=== PATIENT | female | born 1980 | race Caucasian/White ===

== ENCOUNTER → 2018-06-08 | Outpatient (CLI) | payer BC | LOC: LAB SHORT 09:30 → LAB 09:30 | PROVIDERS: Nurse Practitioner Family | DX: Z01.419 Encounter for gynecological examination (general) (routine) without abnormal findings (principal) | CPT/HCPCS: G0145 ==

== ENCOUNTER → 2019-06-14 | Outpatient (CLI) | payer BC ==
[~2019-06-14] MED LIST: CHOL10002 PO; TECFIDERA240 MG PO
[2019-06-17 15:07] LABS: HPV 16 Negative (Negative); HPV 18 Negative (Negative); HPV OTHER HR TYPES Negative (Negative)
== END | disposition home or self-care (01) ==
LOC: LAB SHORT 16:45 → LAB 16:45
PROVIDERS: Registered Nurse
DX: Z01.419 Encounter for gynecological examination (general) (routine) without abnormal findings (principal)
CPT/HCPCS: 87624; G0145

== ENCOUNTER → 2020-03-12 | Outpatient (CLI) | payer BC ==
[2020-03-13 14:08] LABS: Stool Occult Bld Immuno 1 Negative (NEGATIVE)
== END | disposition home or self-care (01) ==
LOC: LAB 07:45 → LAB SHORT 07:45 → LAB FUT 03-09 07:35
PROVIDERS: Nurse Practitioner Family
DX: K62.5 Hemorrhage of anus and rectum (principal)
CPT/HCPCS: 82274

== ENCOUNTER → 2022-09-01 | Outpatient (CLI) | payer BC ==
[2022-09-05 14:09] LABS: HPV 16 Negative (Negative); HPV 18 Negative (Negative); HPV OTHER HR TYPES Negative (Negative)
== END | disposition home or self-care (01) ==
LOC: LAB SHORT 11:49 → LAB 11:49
PROVIDERS: Family Medicine
DX: Z01.419 Encounter for gynecological examination (general) (routine) without abnormal findings (principal)
CPT/HCPCS: 87624; G0123

== ENCOUNTER → 2022-09-01 | Outpatient (CLI) | payer BC | END | disposition home or self-care (01) | LOC: LAB 13:44 → LAB SHORT 13:44 | DX: N84.1 Polyp of cervix uteri (principal) | CPT/HCPCS: 88305 ==

== ENCOUNTER → 2023-01-10 | Outpatient (CLI) | payer BC | END | disposition home or self-care (01) | LOC: LAB SHORT 11:49 → LAB 11:49 | DX: R30.0 Dysuria (principal) | CPT/HCPCS: 87086 ==

== ENCOUNTER → 2023-08-10 | Outpatient (CLI) | payer BC | LOC: LAB SHORT 15:10 → LAB 15:10 | DX: N39.0 Urinary tract infection, site not specified (principal) | CPT/HCPCS: 87086 ==

== ENCOUNTER 2023-11-27 03:16 | Day surgery (SDC) | payer BC, OTHER ==
[2023-11-27 08:18] VITALS: BP 107/78
[2023-11-27] MEDS ORDERED: K2 LIQUID90 MCG/0.5 PO (12:21)
[2023-11-27] MEDS ORDERED: FISH OIL 1,0001 EA10 PO (12:21)
[2023-11-27] MEDS ORDERED: TYSABRI IV (12:22)
[2023-11-27] MEDS ORDERED: TUMERIC PO (12:22)
[2023-11-27] MEDS ORDERED: MAGCIT300 PO (12:23)
[2023-11-27] MEDS ORDERED: CLARITIN-D 121 EAC1 PO (12:23)
[2023-11-27] MEDS ORDERED: MELATONIN5 M1 PO (12:24)
[2023-11-27] MEDS ORDERED: DHEA PO (12:24)
[2023-11-27] MEDS ORDERED: Adipex-P37.5 M1 PO (12:24)
--- NOTE | 2023-11-27 12:25 | NUR ---
PT HAS HAD TYSABRI FOR SEVERAL YEARS. THIS IS THE FIRST TIME GETTING THIS MEDICATION AT THE [facility] AT [facility]. PT STATES SHE DOESN'T NORMALLY STAY THE 1 HOUR AFTER INFUSION IS COMPLETE. CALLED DR. OSCAR'S OFFICE AND SPOKE WITH FRANCY ZAVALA, WHO GAVE ORDERS THAT PT IS NOT REQUIRED TO [place]MEAIN FOR THE 1 HOUR TIME PERIOD AFTER HER INFUSION. SHE MAY BE DISCHARGE HOME AFTER EACH INFUSION IS COMPLETE.
== END 2023-11-27 10:07 | disposition home or self-care (01) ==
LOC: ATC 03:16
DX: G35 Multiple sclerosis (principal); G43.909 Migraine, unspecified, not intractable, without status migrainosus
CPT/HCPCS: 96365; J2323

== ENCOUNTER 2023-12-25 01:41 | Day surgery (SDC) | payer BC, OTHER ==
[~2023-12-25 01:41] MED LIST changes: +Adipex-P37.5 M1 PO; +CLARITIN-D 121 EAC1 PO; +DHEA PO; +FISH OIL 1,0001 EA10 PO; +K2 LIQUID90 MCG/0.5 PO; +MAGCIT300 PO; +MELATONIN5 M1 PO; +TUMERIC PO; +TYSABRI IV
[2023-12-25] MEDS ORDERED: NATALIZUMAB IV SCH (06:00)
[2023-12-25] MEDS ORDERED: NS IV SCH (06:00)
[2023-12-25 10:59] VITALS: BP 109/75
== END 2023-12-25 11:57 | disposition home or self-care (01) ==
LOC: ATC 01:41
DX: G35 Multiple sclerosis (principal); R53.83 Other fatigue; G43.909 Migraine, unspecified, not intractable, without status migrainosus; Z80.0 Family history of malignant neoplasm of digestive organs
CPT/HCPCS: 96365; J2323

== ENCOUNTER 2024-03-18 01:41 | Day surgery (SDC) | payer BC, OTHER ==
[2024-03-18] MEDS ORDERED: NATALIZUMAB IV SCH (06:00)
[2024-03-18] MEDS ORDERED: NS IV SCH (06:00)
[2024-03-18 09:56] VITALS: BP 97/68
== END 2024-03-18 11:36 | disposition home or self-care (01) ==
LOC: ATC 01:41
DX: G35 Multiple sclerosis (principal); Z79.899 Other long term (current) drug therapy; Z88.0 Allergy status to penicillin; Z91.018 Allergy to other foods
CPT/HCPCS: 96365; J2323

== ENCOUNTER 2024-05-13 02:09 | Day surgery (SDC) | payer BC, OTHER ==
[2024-05-13] MEDS ORDERED: NATALIZUMAB IV SCH (07:00)
[2024-05-13] MEDS ORDERED: NS IV SCH (07:00)
[2024-05-13 08:54] VITALS: BP 112/71
[2024-05-13] MEDS ORDERED: VAGIFEM10 MCG VAG (09:35)
[2024-05-13] MEDS ORDERED: MELO7.5 PO (09:36)
[2024-05-13] MEDS ORDERED: METPHE5 PO (09:36)
== END 2024-05-13 10:32 | disposition home or self-care (01) ==
LOC: ATC 02:09
DX: G35 Multiple sclerosis (principal); Z88.0 Allergy status to penicillin
CPT/HCPCS: 96365; J2323

== ENCOUNTER 2024-06-10 05:35 | Day surgery (SDC) | payer BC, OTHER ==
[~2024-06-10 05:35] MED LIST changes: +MELO7.5 PO; +METPHE5 PO; +VAGIFEM10 MCG VAG
[2024-06-10] MEDS ORDERED: NATALIZUMAB IV SCH (06:00)
[2024-06-10] MEDS ORDERED: NS IV SCH (06:00)
== END 2024-06-10 11:08 | disposition home or self-care (01) ==
LOC: ATC 05:35
DX: G35 Multiple sclerosis (principal); G43.909 Migraine, unspecified, not intractable, without status migrainosus; Z88.0 Allergy status to penicillin; Z79.899 Other long term (current) drug therapy
CPT/HCPCS: 96365; J2323

== ENCOUNTER 2024-07-08 03:41 | Day surgery (SDC) | payer BC, OTHER ==
[2024-07-08] MEDS ORDERED: NATALIZUMAB IV SCH (06:00)
[2024-07-08] MEDS ORDERED: NS IV SCH (06:00)
[2024-07-08 09:40] VITALS: BP 106/66
== END 2024-07-08 11:28 | disposition home or self-care (01) ==
LOC: ATC 03:41
DX: G35 Multiple sclerosis (principal); Z88.0 Allergy status to penicillin
CPT/HCPCS: 96365; J2323

== ENCOUNTER 2024-08-05 01:31 | Day surgery (SDC) | payer BC, OTHER ==
[2024-08-05] MEDS ORDERED: NATALIZUMAB IV SCH (06:00)
[2024-08-05] MEDS ORDERED: NS IV SCH (06:00)
[2024-08-05 09:56] VITALS: BP 111/89
== END 2024-08-05 11:30 | disposition home or self-care (01) ==
LOC: ATC 01:31
DX: G35 Multiple sclerosis (principal); G43.909 Migraine, unspecified, not intractable, without status migrainosus; Z79.899 Other long term (current) drug therapy; Z88.0 Allergy status to penicillin
CPT/HCPCS: 96365; J2323

== ENCOUNTER 2024-09-02 03:34 | Day surgery (SDC) | payer BC, OTHER ==
[2024-09-02] MEDS ORDERED: NATALIZUMAB IV SCH (06:00)
[2024-09-02] MEDS ORDERED: NS IV SCH (06:00)
[2024-09-02 07:40] VITALS: BP 107/81
== END 2024-09-02 09:05 | disposition home or self-care (01) ==
LOC: ATC 03:34
DX: G35 Multiple sclerosis (principal); Z88.0 Allergy status to penicillin
CPT/HCPCS: 96365; J2323

== ENCOUNTER 2024-09-30 03:35 | Day surgery (SDC) | payer BC, OTHER ==
[2024-09-30] MEDS ORDERED: NS IV SCH (06:00)
[2024-09-30] MEDS ORDERED: NATALIZUMAB IV SCH (06:00)
[2024-09-30 08:36] VITALS: BP 109/72
== END 2024-09-30 10:10 | disposition home or self-care (01) ==
LOC: ATC 03:35
DX: G35 Multiple sclerosis (principal); G43.909 Migraine, unspecified, not intractable, without status migrainosus; Z88.2 Allergy status to sulfonamides; Z91.018 Allergy to other foods
CPT/HCPCS: 96365; J2323

== ENCOUNTER 2024-10-28 05:34 | Day surgery (SDC) | payer BC, OTHER ==
[2024-10-28] MEDS ORDERED: NATALIZUMAB IV SCH (06:00)
[2024-10-28] MEDS ORDERED: NS IV SCH (06:00)
[2024-10-28 07:50] VITALS: BP 122/70
== END 2024-10-28 09:29 | disposition home or self-care (01) ==
LOC: ATC 05:34
DX: G35 Multiple sclerosis (principal); G43.909 Migraine, unspecified, not intractable, without status migrainosus; Z79.899 Other long term (current) drug therapy; Z88.0 Allergy status to penicillin; Z91.018 Allergy to other foods
CPT/HCPCS: 96365; J2323

== ENCOUNTER 2024-12-12 04:27 | Day surgery (SDC) | payer BC, OTHER ==
[2024-12-12] MEDS ORDERED: NS IV SCH (06:00)
[2024-12-12] MEDS ORDERED: NATALIZUMAB IV SCH (06:00)
[2024-12-12] MEDS ORDERED: Acetaminophen 325 MG TABLET PO SCH (07:30)
[2024-12-12 07:38] VITALS: BP 106/78
--- NOTE | 2024-12-12 09:30 | NUR ---
PT REFUSAL FOR MONITORING POST TYSABRI PER MD ORDER, PT IS TO BE MONITORED FOR 30-60 MINUTES AFTER COMPLETION OF TYSABRI INFUSION. PT STATES "THEY NEVER KEEP ME AFTER IT'S DONE AND I'VE BEEN GETTING THIS FOR A LONG TIME". ADVISED PT THAT SHE COULD REFUSE AFTER BEING NOTIFIED OF THE RISKS. PT STATED "I'LL BE FINE, I'D LIKE TO GO HOME".
== END 2024-12-12 09:30 | disposition home or self-care (01) ==
LOC: ATC 04:27
DX: G35 Multiple sclerosis (principal); Z88.0 Allergy status to penicillin; Z91.018 Allergy to other foods; Z87.891 Personal history of nicotine dependence; Z79.899 Other long term (current) drug therapy
CPT/HCPCS: 96365; J2323

== ENCOUNTER 2025-01-13 03:44 | Day surgery (SDC) | payer BC, OTHER ==
[2025-01-13] MEDS ORDERED: NATALIZUMAB IV SCH (06:00)
[2025-01-13] MEDS ORDERED: NS IV SCH (06:00)
[2025-01-13 08:45] VITALS: BP 113/79
== END 2025-01-13 10:22 | disposition home or self-care (01) ==
LOC: ATC 03:44
DX: G35 Multiple sclerosis (principal); Z87.891 Personal history of nicotine dependence; Z79.899 Other long term (current) drug therapy; Z88.0 Allergy status to penicillin; Z91.018 Allergy to other foods
CPT/HCPCS: 96365; J2323

== ENCOUNTER 2025-02-10 03:47 | Day surgery (SDC) | payer BC, OTHER ==
[2025-02-10] MEDS ORDERED: NATALIZUMAB IV SCH (06:00)
[2025-02-10] MEDS ORDERED: NS IV SCH (06:00)
[2025-02-10 08:00] VITALS: BP 109/80
== END 2025-02-10 09:33 | disposition home or self-care (01) ==
LOC: ATC 03:47
DX: G35 Multiple sclerosis (principal); Z88.0 Allergy status to penicillin; Z91.09 Other allergy status, other than to drugs and biological substances; Z79.899 Other long term (current) drug therapy
CPT/HCPCS: 96365; J2323

== ENCOUNTER → 2025-02-22 | Outpatient (CLI) | payer BC ==
[2025-02-22 12:49] LABS: Stool Occult Bld Immuno 1 Positive (NEGATIVE)
== END | disposition home or self-care (01) ==
LOC: LAB 09:41 → LAB SHORT 09:41
PROVIDERS: Nurse Practitioner Family
DX: R10.13 Epigastric pain (principal)
CPT/HCPCS: 82274; 87338

== ENCOUNTER 2025-03-10 02:54 | Day surgery (SDC) | payer BC, OTHER ==
[~2025-03-10 02:54] MED LIST changes: +NATALIZUMAB IV SCH; +NS IV SCH
[2025-03-10 08:34] VITALS: BP 114/71
== END 2025-03-10 10:10 | disposition home or self-care (01) ==
LOC: ATC 02:54
DX: G35 Multiple sclerosis (principal); R26.89 Other abnormalities of gait and mobility; Z79.899 Other long term (current) drug therapy
CPT/HCPCS: 96365; J2323

== ENCOUNTER 2025-04-07 04:18 | Day surgery (SDC) | payer BC, OTHER ==
[~2025-04-07 04:18] MED LIST changes: -NATALIZUMAB IV SCH; -NS IV SCH
[2025-04-07] MEDS ORDERED: NS IV SCH (06:00)
[2025-04-07] MEDS ORDERED: NATALIZUMAB IV SCH (06:00)
[2025-04-07 08:45] VITALS: BP 110/73
== END 2025-04-07 10:30 | disposition home or self-care (01) ==
LOC: ATC 04:18
DX: G35 Multiple sclerosis (principal); Z79.899 Other long term (current) drug therapy; Z88.0 Allergy status to penicillin; Z87.891 Personal history of nicotine dependence
CPT/HCPCS: 96365; J2323

== ENCOUNTER 2025-06-02 01:59 | Day surgery (SDC) | payer BC, OTHER ==
[2025-06-02] MEDS ORDERED: NS IV SCH (06:00)
[2025-06-02] MEDS ORDERED: NATALIZUMAB IV SCH (06:00)
[2025-06-02 08:26] VITALS: BP 133/77
== END 2025-06-02 10:07 | disposition home or self-care (01) ==
LOC: ATC 01:59
DX: G35 Multiple sclerosis (principal); Z87.891 Personal history of nicotine dependence; Z79.1 Long term (current) use of non-steroidal anti-inflammatories (NSAID); Z79.899 Other long term (current) drug therapy; Z88.0 Allergy status to penicillin; Z91.018 Allergy to other foods
CPT/HCPCS: 96365; J2323

== ENCOUNTER 2025-06-30 01:10 | Day surgery (SDC) | payer BC, OTHER ==
[2025-06-30] MEDS ORDERED: NS IV SCH (06:00)
[2025-06-30] MEDS ORDERED: NATALIZUMAB IV SCH (06:00)
[2025-06-30 08:28] VITALS: BP 114/68
== END 2025-06-30 10:09 | disposition home or self-care (01) ==
LOC: ATC 01:10
DX: G35 Multiple sclerosis (principal); Z88.0 Allergy status to penicillin; Z91.018 Allergy to other foods; Z87.891 Personal history of nicotine dependence
CPT/HCPCS: J2323

== ENCOUNTER 2025-07-27 00:40 | Day surgery (SDC) | payer BC, OTHER ==
[2025-07-27] MEDS ORDERED: NATALIZUMAB IV SCH (06:00)
[2025-07-27] MEDS ORDERED: NS IV SCH (06:00)
[2025-07-27 14:47] VITALS: BP 108/73
[2025-07-27 16:28] VITALS: BP 103/73
--- NOTE | 2025-07-27 16:40 | NUR ---
PT'S INFUSION DONE AT 1625. PT DECLINED STAYING FOR 30-60MIN OBSERVATION POST INFUSION STATING SHE HAS TO WORK TONIGHT AND SHE HAS ALWAYS TOLERATED THE MEDICATION. POST VITALS ARE CONSISTANT WITH PRE VITALS. PT DISCHARGED AT 1635. TYSABRI CHECKLIST FAXED TO [facility].
== END 2025-07-27 16:35 | disposition home or self-care (01) ==
LOC: ATC 00:40
DX: G35 Multiple sclerosis (principal); R53.83 Other fatigue; R26.89 Other abnormalities of gait and mobility; D64.9 Anemia, unspecified; Z87.891 Personal history of nicotine dependence; Z79.1 Long term (current) use of non-steroidal anti-inflammatories (NSAID); Z79.899 Other long term (current) drug therapy; Z88.0 Allergy status to penicillin; Z91.018 Allergy to other foods
CPT/HCPCS: 96365; J2323

== ENCOUNTER 2025-08-25 07:26 | Day surgery (SDC) | payer BC, OTHER ==
[~2025-08-25 07:26] MED LIST changes: +NATALIZUMAB IV SCH; +NS IV SCH
[2025-08-25 07:35] VITALS: BP 107/68
== END 2025-08-25 09:20 | disposition home or self-care (01) ==
LOC: ATC 07:26
DX: G35.D Multiple sclerosis, unspecified (principal); Z91.018 Allergy to other foods; Z88.0 Allergy status to penicillin; Z87.891 Personal history of nicotine dependence
CPT/HCPCS: 96365; J2323

== ENCOUNTER 2025-09-29 00:39 | Day surgery (SDC) | payer BC, OTHER ==
[~2025-09-29 00:39] MED LIST changes: -NATALIZUMAB IV SCH; -NS IV SCH
[2025-09-29] MEDS ORDERED: NATALIZUMAB IV SCH (06:00)
[2025-09-29] MEDS ORDERED: NS IV SCH (06:00)
[2025-09-29 07:54] VITALS: BP 129/77
== END 2025-09-29 09:40 | disposition home or self-care (01) ==
LOC: ATC 00:39
DX: G35.D Multiple sclerosis, unspecified (principal); Z88.0 Allergy status to penicillin; Z91.018 Allergy to other foods; Z87.891 Personal history of nicotine dependence
CPT/HCPCS: 96365; 99211; J2323

== ENCOUNTER 2025-10-27 03:23 | Day surgery (SDC) | payer BC, OTHER ==
[2025-10-27] MEDS ORDERED: NS IV SCH (06:00)
[2025-10-27] MEDS ORDERED: NATALIZUMAB IV SCH (06:00)
[2025-10-27 07:41] VITALS: BP 119/74
== END 2025-10-27 09:34 | disposition home or self-care (01) ==
LOC: ATC 03:23
DX: G35.A Relapsing-remitting multiple sclerosis (principal); Z88.0 Allergy status to penicillin; Z91.018 Allergy to other foods; Z87.891 Personal history of nicotine dependence
CPT/HCPCS: 96365; J2323